=== PATIENT | female | born 1950 | race Hispanic/Latino ===

== ENCOUNTER 2025-03-06 14:46 | Emergency (ER) | payer MEDICARE ==
[~2025-03-06] VITALS: Ht 149.9 cm; Wt 80.3 kg
[2025-03-06 14:55] VITALS: PULSE 86; RESP 18; TEMP 98.2; O2SAT 95
[2025-03-06] MEDS: HYDROCODONE/APAP 5MG-325MG TAB PO ONE (15:11)
[2025-03-06] MEDS ORDERED: ACETAMINOPHEN-1 EAC4 PO (15:46)
== END 2025-03-06 16:05 | disposition home or self-care (01) ==
LOC: FSED 14:53
DX: S52.592A Other fractures of lower end of left radius, initial encounter for closed fracture (principal); S63.512A Sprain of carpal joint of left wrist, initial encounter; W01.0XXA Fall on same level from slipping, tripping and stumbling without subsequent striking against object, initial encounter; Y93.01 Activity, walking, marching and hiking; Y92.096 Garden or yard of other non-institutional residence as the place of occurrence of the external cause
CPT/HCPCS: 99284